=== PATIENT | female | born 1990 | race Caucasian/White ===

== ENCOUNTER 2019-10-18 14:54 | Inpatient (IN) ==
[2019-10-18] MEDS ORDERED: LACTATED RINGER'S 1,000 ML IV PRN (15:39)
[2019-10-18] MEDS ORDERED: OXYTOCIN 30 UNITS/500 ML BAG IV PRN ×2 (15:39→19:23)
[2019-10-18 16:23] LABS: Hematocrit (blood only) 34.4 % (37-47); Mean Corpuscular Hemoglobin 30.8 pg (25-34); Mean Corpuscular Hgb Conc 34.9 g/dL (32-36); Mean Corpuscular Volume 88.2 fL (80-100); Mean Platelet Volume 9.9 fL (7.4-10.4); Platelet Count 287 K/uL (130-400); RDW Coefficient of Variation 13.7 % (11.5-14.5); RDW Standard Deviation 44.4 fL (36.4-46.3); White Blood Count 19.01 K/uL (4.8-10.8)
[2019-10-18] MEDS ORDERED: ePHEDrine sulfate 50 MG/ML AMP ONE (17:53)
--- NOTE | 2019-10-18 17:53 | Labor Progress Brief Note ---
Date of Service October 18, 2019 Subjective Patient presents at 40 5/7 with painful contractions Q5min. Ambulated x2 hours. No LOF or VB. Contractions more intense. Assessment & Plan (1) : Labor progress evident. Patient would like epidural, will begin bolus and notify anesthesia now. BP noted, likely due to discomfort, no other s/sx PIH. Physical Exam Physical Exam: Cvx now /-1 SROM clear fluid occurred during exam, no hook used. FHT Cat 1 [place] Q7 Results & Data Vital Signs (Past 12 Hours) Vital Signs Temp Pulse Resp BP 10/18/19 17:03 94 H 141/88 H 10/18/19 15:49 95 H 142/83 H 10/18/19 15:13 101 H 144/91 H 10/18/19 15:08 97.9 F 102 H 20 133/81 10/18/19 15:00 97.9 F 102 H 20 133/81 Coding Level of Care Code None Diagnoses Z34.90
[2019-10-18] MEDS ORDERED: fentaNYL 2MCG/ML ROPIV 1.25MG/ML 100 ML BAG EPI ONE (17:54)
[2019-10-18] MEDS ORDERED: fentaNYL citrate 100 MCG/2 ML VIAL ONE (17:54)
[2019-10-18] MEDS ORDERED: BUPIVACAINE 0.25% 30 ML VIAL ONE (17:54)
[2019-10-18] MEDS ORDERED: NALBUPHINE HCL INJ 10 MG/ML AMP IV PRN (18:00)
[2019-10-18] MEDS ORDERED: DiphenhydrAMINE HCL 50 MG/ML VIAL IV PRN (18:00)
[2019-10-18] MEDS ORDERED: ePHEDrine sulfate 50 MG/ML AMP IV PRN (18:00)
[2019-10-18] MEDS ORDERED: NALOXONE HCL 0.4 MG/1 ML VIAL/CARP IV PRN (18:00)
[2019-10-18] MEDS ORDERED: NALOXONE HCL 1 MG in SODIUM CHLORIDE 0.9% 1000ML 1,000 ML IV PRN (18:00)
[2019-10-18] MEDS ORDERED: ONDANSETRON INJ 2 MG/ML 2 ML VIAL IV PRN (18:00)
[2019-10-18] MEDS ORDERED: fentaNYL 2MCG/ML ROPIV 1.25MG/ML 100 ML BAG EPI PRN (18:00)
--- NOTE | 2019-10-18 18:05 | Anesthesiology Consultation ---
Date of Service October 18, 2019 Assessment & Plan (1) Encounter for pre-operative examination: Chart Review Chart Review: Patient NOT seen in Pre Admission Testing and Acceptable Risk for Labor Epidural Per MFM, no contraindications to delivering at [facility]. Consults Requested none History Height/Weight Height: 5 ft 8 in Weight: 94.347 kg Allergies Allergy/AdvReac Type Severity Reaction Status Date / Time No Known Drug Allergies Allergy Verified 10/17/19 08:37 Medications Home Medications Medication Instructions Recorded Confirmed Last Taken prenat.vits,stella,utp-mikl-jaztw 1 tab PO DAILY 03/03/19 10/18/19 10/17/19 11:00 Past Medical History Medical History Breast lump Heart murmur stenosis of pulmonary valve Pulmonary stenosis Varicella Per [facility] assessement of this patient, she follows with cardiology for monitoring of her pulmonary artery stenosis. Echo report from 10/2018 documents mild supravalvar pulmonary stenosis and mild pulmonary insufficiency. Right ventricular systolic function and pulmonary artery pressure estimates were norm al. Left ventricular systolic function was excellent with an estimated LV EF of 70%. She has not required any treatments or interventions to date. Exercise / Class Metabolic Activity II 4-5 Yardwork/Stairs/Walk up hill Past Family History Family History Father Hypertension Past Surgical History Surgical History S/P fine needle aspiration Past Anesthesia History No Hx of Anesthesia Complications and No Family Hx of Anesthesia Complications History of PONV No Hx of PONV and No Hx of Motion Sickness Social History Smoking Status: Never smoker Do You Dip or Chew Tobacco: No Hx Alcohol Use: No Hx Substance Use: No Physical Exam Vital Signs Last Vital Signs Temp 36.6 C 10/18/19 15:08 Pulse 94 H 10/18/19 18:03 Resp 20 10/18/19 15:08 BP 134/83 10/18/19 18:03 Pulse Ox 100 10/18/19 18:02 Testing Laboratory Results 10/18/19 15:56
--- NOTE | 2019-10-18 19:24 | Labor Progress Brief Note ---
Date of Service October 18, 2019 Subjective Comfortable with epidural. Assessment & Plan (1) : Change occurring. Ctx spread apart so discussed pitocin with pt and she is agreeable to starting. Physical Exam Physical Exam: [place] Q4-5 FHT Cat 1 Results & Data Vital Signs (Past 12 Hours) Vital Signs Temp Pulse Resp BP Pulse Ox 10/18/19 19:22 85 100 10/18/19 19:17 86 99 10/18/19 19:12 88 99 10/18/19 19:08 98.6 F 18 10/18/19 19:07 86 97 10/18/19 19:02 90 98 10/18/19 18:58 83 126/76 10/18/19 18:57 86 96 10/18/19 18:55 83 118/73 10/18/19 18:52 90 100 10/18/19 18:49 88 131/77 10/18/19 18:47 85 100 10/18/19 18:43 83 125/83 10/18/19 18:42 87 100 10/18/19 18:41 94 H 133/84 10/18/19 18:39 96 H 127/81 10/18/19 18:37 91 H 137/80 100 10/18/19 18:35 98 H 135/80 10/18/19 18:33 90 127/81 10/18/19 18:32 97 H 100 10/18/19 18:31 100 H 136/85 10/18/19 18:30 89 134/81 10/18/19 18:28 94 H 141/86 H 10/18/19 18:27 97 H 100 10/18/19 18:22 106 H 100 10/18/19 18:17 97 H 100 10/18/19 18:12 96 H 100 10/18/19 18:07 103 H 100 10/18/19 18:03 94 H 134/83 10/18/19 18:02 105 H 100 10/18/19 17:03 94 H 141/88 H 10/18/19 15:49 95 H 142/83 H 10/18/19 15:13 101 H 144/91 H 10/18/19 15:08 97.9 F 102 H 20 133/81 10/18/19 15:00 97.9 F 102 H 20 133/81 Coding Level of Care Code None Diagnoses Z34.90
--- NOTE | 2019-10-18 21:27 | Labor Progress Brief Note ---
Date of Service October 18, 2019 Subjective Feeling some pressure Assessment & Plan (1) : Begin second stage Physical Exam Physical Exam: 100/+2 FHT Cat 1 Results & Data Vital Signs (Past 12 Hours) Vital Signs Temp Pulse Resp BP Pulse Ox 10/18/19 21:22 108 H 100 10/18/19 21:19 84 125/64 10/18/19 21:17 82 99 10/18/19 21:12 83 99 10/18/19 21:07 95 H 99 10/18/19 21:02 84 117/67 99 10/18/19 20:59 98.6 F 20 10/18/19 20:57 86 98 10/18/19 20:52 83 99 10/18/19 20:47 84 116/68 98 10/18/19 20:42 87 99 10/18/19 20:37 99 H 100 10/18/19 20:33 80 126/74 10/18/19 20:32 83 100 10/18/19 20:30 18 10/18/19 20:27 91 H 99 10/18/19 20:22 84 100 10/18/19 20:18 81 127/75 10/18/19 20:17 82 100 10/18/19 20:12 88 99 10/18/19 20:07 81 99 10/18/19 20:03 77 122/72 10/18/19 20:02 83 99 10/18/19 20:00 20 10/18/19 19:57 84 99 10/18/19 19:52 82 100 10/18/19 19:47 85 122/76 100 10/18/19 19:42 83 100 10/18/19 19:37 81 99 10/18/19 19:34 83 122/74 10/18/19 19:32 84 100 10/18/19 19:30 16 10/18/19 19:27 83 100 10/18/19 19:22 85 100 10/18/19 19:17 86 99 10/18/19 19:12 88 99 10/18/19 19:08 98.6 F 18 10/18/19 19:07 86 97 10/18/19 19:02 90 98 10/18/19 18:58 83 126/76 10/18/19 18:57 86 96 10/18/19 18:55 83 118/73 10/18/19 18:52 90 100 10/18/19 18:49 88 131/77 10/18/19 18:47 85 100 10/18/19 18:43 83 125/83 10/18/19 18:42 87 100 10/18/19 18:41 94 H 133/84 10/18/19 18:39 96 H 127/81 10/18/19 18:37 91 H 137/80 100 10/18/19 18:35 98 H 135/80 10/18/19 18:33 90 127/81 10/18/19 18:32 97 H 100 10/18/19 18:31 100 H 136/85 10/18/19 18:30 89 134/81 10/18/19 18:28 94 H 141/86 H 10/18/19 18:27 97 H 100 10/18/19 18:22 106 H 100 10/18/19 18:17 97 H 100 10/18/19 18:12 96 H 100 10/18/19 18:07 103 H 100 10/18/19 18:03 94 H 134/83 10/18/19 18:02 105 H 100 10/18/19 17:03 94 H 141/88 H 10/18/19 15:49 95 H 142/83 H 10/18/19 15:13 101 H 144/91 H 10/18/19 15:08 97.9 F 102 H 20 133/81 10/18/19 15:00 97.9 F 102 H 20 133/81 Coding Level of Care Code None Diagnoses Z34.90
--- NOTE | 2019-10-18 21:47 | Delivery Summary ---
Vaginal Delivery Summary Date of Service October 18, 2019 Vaginal Delivery Summary DIAGNOSES: 1. Quinn intrauterine at 40w5d gestation. 2. Spontaneous onset of labor. 3. Group B Streptococcus Neg. PROCEDURE: Spontaneous vaginal delivery without laceration. SURGEON: Rachele Parmar MD. [employer]: None. ESTIMATED BLOOD LOSS: 250 mL. COMPLICATIONS: None. PLACENTA: Spontaneous and intact with a 3-vessel cord. DISPOSITION: Stable to labor and delivery. DESCRIPTION: The patient pushed well and brought the head to in OA position. The infant's head was allowed to deliver with contraction force and no further active pushing, with the perineum protected during this time. The shoulders delivered easily with a maternal pushing effort. There was a double nuchal cord reduced with the head on the perineum. The left shoulder was anterior. The shoulders and body delivered without any difficulty, and the was placed on the maternal abdomen. It was vigorous and moving all extremities, and making respiratory efforts. The cord was doubly clamped by the MD and then cut by the FOB. The placenta delivered spontaneously and was noted to be intact and with a 3VC. The cervix, vagina and perineum were examined and were found to be without defect requiring repair. The fundus was firm and lochia minimal immediately after delivery.
[2019-10-18] MEDS ORDERED: DIPHTHERIA/TETANUS/PERTUSSIS 0.5 ML SYR/VIAL IM ONE (21:57)
[2019-10-18] MEDS ORDERED: BENZOCAINE 20% AER SPR 82.5 GM CAN EXT PRN (21:57)
[2019-10-18] MEDS ORDERED: SUPERCREAM 0.870% 15 GM JAR EXT PRN (21:57)
[2019-10-18] MEDS ORDERED: OXYCODONE/ACETAMINOPHEN 5mg/325mg TAB PO PRN (21:57)
[2019-10-18] MEDS ORDERED: HYDROCORTISONE ACETATE 25 MG SUPP PR PRN (21:57)
[2019-10-18] MEDS ORDERED: ACETAMINOPHEN 325 MG TAB PO PRN (21:57)
[2019-10-18] MEDS: IBUPROFEN 600 MG TAB PO PRN (23:48)
[2019-10-19] MEDS: IBUPROFEN 600 MG TAB PO PRN ×3 (06:06→20:20)
--- NOTE | 2019-10-19 06:25 | Obstetrical Progress Note ---
Date of Service October 19, 2019 Assessment & Plan (1) state: Recovering well PPD#1, routine care today, D/C tomorrow. Subjective Ambulation: ambulating normally Voiding: no voiding problems Passing Gas:: Yes Diet Tolerance:: regular diet Lochia:: Small Feeding Type:: breast feeding Physical Exam Constitutional WD/WN, vitals as above Eyes PERRL, conjunctivae normal, anicteric sclerae Neck normal visual inspection Respiratory normal respiratory effort and able to speak in complete sentences; no respiratory distress and no labored breathing Cardiovascular Rate/Rhythm: regular rate and regular rhythm Extremities: no edema Chest (Breasts) Chest: normal inspection of chest Gastrointestinal (Abdomen) Inspection/Auscultation: abdomen normal to inspection Soft, postgravid Psychiatric A+Ox3, euthymic affect Genitourinary OB Exam Abdomen: + fundal height Fundus: + firm and + relation to umbilicus (fundus just below umbilicus); not tender Results & Data Vital Signs (Past 12 Hours) Vital Signs Temp Pulse Pulse Resp BP BP Pulse Ox 10/19/19 05:00 97.9 F 90 18 121/75 10/19/19 00:25 98.2 F 108 H 18 129/78 10/18/19 23:43 87 143/86 H 10/18/19 23:28 95 H 153/74 H 10/18/19 23:22 96 H 18 151/81 H 10/18/19 23:13 96 H 151/81 H 10/18/19 22:58 97 H 162/83 H 10/18/19 22:43 97 H 18 126/81 10/18/19 22:28 95 H 18 135/73 10/18/19 22:13 103 H 16 132/105 H 10/18/19 21:58 108 H 18 144/113 H 10/18/19 21:43 114 H 144/88 H 10/18/19 21:42 114 H 18 144/88 H 97 10/18/19 21:37 122 H 99 10/18/19 21:33 117 H 155/94 H 10/18/19 21:32 116 H 100 10/18/19 21:27 105 H 20 100 10/18/19 21:22 108 H 100 10/18/19 21:19 84 125/64 10/18/19 21:17 82 99 04/25/20 21:12 83 99 04/25/20 21:07 95 H 99 0425/20 21:02 84 117/67 99 04/25/20 20:59 98.6 F 20 10/17/20 20:57 86 98 0425/20 20:52 83 99 25/20 20:47 84 116/68 98 0425/20 20:42 87 99 10/17/20 20:37 99 H 100 0425/20 20:33 80 126/74 0425/20 20:32 83 100 0425/20 20:30 18 04/20 20:27 91 H 99 10/17/20 20:22 84 100 04/20 20:18 81 127/75 0425/20 20:17 82 100 25/20 20:12 88 99 25/20 20:07 81 99 10/17/20 20:03 77 122/72 0425/20 20:02 83 99 04/20 20:00 20 20 19:57 84 99 10/17/20 19:52 82 100 0425/20 19:47 85 122/76 100 0425/20 19:42 83 100 10/17/20 19:37 81 99 04/20 19:34 83 122/74 0425/20 19:32 84 100 10/17/20 19:30 16 10/17/20 19:27 83 100 10/17/20 19:22 85 100 10/17/20 19:17 86 99 10/17/20 19:12 88 99 25/20 19:08 98.6 F 18 20 19:07 86 97 0425/20 19:02 90 98 25/20 18:58 83 126/76 0425/20 18:57 86 96 0425/20 18:55 83 118/73 0425/20 18:52 90 100 0425/20 18:49 88 131/77 0425/20 18:47 85 100 0425/20 18:43 83 125/83 0425/20 18:42 87 100 0425/20 18:41 94 H 133/84 0425/20 18:39 96 H 127/81 04/25/20 18:37 91 H 137/80 100 10/18/19 18:35 98 H 135/80 10/18/19 18:33 90 127/81 10/18/19 18:32 97 H 100 10/18/19 18:31 100 H 136/85 10/18/19 18:30 89 134/81 10/18/19 18:28 94 H 141/86 H 10/18/19 18:27 97 H 100
[2019-10-19 07:03] LABS: Hematocrit (blood only) 30.5 % (37-47); Hemoglobin 10.2 g/dL (12.0-16.0); Mean Corpuscular Hemoglobin 29.6 pg (25-34); Mean Corpuscular Hgb Conc 33.4 g/dL (32-36); Mean Corpuscular Volume 88.4 fL (80-100); Mean Platelet Volume 9.7 fL (7.4-10.4); Platelet Count 249 K/uL (130-400); RDW Coefficient of Variation 13.7 % (11.5-14.5); RDW Standard Deviation 44.3 fL (36.4-46.3); Red Blood Count 3.45 M/uL (4.2-5.4); White Blood Count 16.82 K/uL (4.8-10.8)
--- NOTE | 2019-10-19 07:30 | Anesthesia Procedure Note ---
Date of Service October 19, 2019 Anesthesia Post Epidural Note Vital Signs Vital Signs: Temp Pulse Resp BP Pulse Ox 36.6 C 90 18 121/75 97 10/19/19 05:00 10/19/19 05:00 10/19/19 05:00 10/19/19 05:00 10/18/19 21:42 Notes Mental Status: alert / awake / arousable and participated in evaluation Patient Amnestic to Procedure: No Nausea / Vomiting: adequately controlled Pain: adequately controlled Airway Patency, RR, SpO2: stable & adequate BP & HR: stable & adequate Hydration State: stable & adequate Neuraxial Anesthesia: was administered and sensory block resolved Anesthetic Complications: no major complications apparent and Pt Satisfied with anesthetic care Epidural: Removed without complications and With tip intact
[2019-10-19] MEDS: DOCUSATE SODIUM 100 MG CAP PO SCH ×2 (08:40→20:20)
[2019-10-19] MEDS: PRENATAL VITAMIN 1 TAB PO SCH (08:40)
[2019-10-20] MEDS: IBUPROFEN 600 MG TAB PO PRN ×2 (02:14→16:07)
--- NOTE | 2019-10-20 07:05 | Obstetrical Progress Note ---
Date of Service October 20, 2019 Assessment & Plan (1) state: Recovered well, instructions for DC reviewed. Subjective Ambulation: ambulating normally Voiding: no voiding problems Passing Gas:: Yes Diet Tolerance:: regular diet Lochia:: Small Feeding Type:: breast feeding Physical Exam Constitutional WD/WN, vitals as above Eyes PERRL, conjunctivae normal, anicteric sclerae Neck normal visual inspection Respiratory normal respiratory effort and able to speak in complete sentences; no respiratory distress and no labored breathing Cardiovascular Rate/Rhythm: regular rate and regular rhythm Extremities: no edema Chest (Breasts) Chest: normal inspection of chest Gastrointestinal (Abdomen) Inspection/Auscultation: abdomen normal to inspection Soft, postgravid Psychiatric A+Ox3, euthymic affect Genitourinary OB Exam Abdomen: + fundal height Fundus: + firm and + relation to umbilicus (fundus just below umbilicus); not tender Results & Data Vital Signs (Past 12 Hours) Vital Signs Temp Pulse Resp BP Pulse Ox 10/19/19 23:30 98.6 F 90 18 135/86 10/19/19 20:30 98.1 F 89 18 128/88 97
[2019-10-20] MEDS: PRENATAL VITAMIN 1 TAB PO SCH (09:55)
[2019-10-20] MEDS: DOCUSATE SODIUM 100 MG CAP PO SCH (09:55)
[2019-10-20 16:27] VITALS: O2SAT 97
[2019-10-20 20:31] VITALS: BP 134/85; PULSE 92; TEMP 98.6
== END 2019-10-20 20:30 | disposition home or self-care (01) | DRG 807 ==
LOC: OPB 14:54 → 4S1 14:56 → 4S2 10-19 00:29

== ENCOUNTER 2022-03-24 20:14 | Inpatient (IN) ==
[2022-03-24] MEDS ORDERED: OXYTOCIN 30 UNITS/500 ML BAG IV PRN (21:03)
[2022-03-24] MEDS ORDERED: LIDOCAINE 1% LOCAL 20 ML VIAL INFIL PRN (21:03)
--- NOTE | 2022-03-24 21:10 | History & Physical Report ---
Date of Service March 24, 2022 Assessment & Plan (1) Encounter for supervision of normal in multigravida, antepartum: Plan: Admit to L&D, EFM/toco. Labs, IV. Discussed with patient that her contraction pattern is not yet ideal, however she is making cervical change. I offered pitocin to augment labor vs ambulate in hallways - she would prefer to ambulate. She does plan to get an epidural when pain increases. History of Present Illness Chief Complaint: contractions Primary Care Provider: Lida MilviaHomero Aguayo 31yo @ 40 08/01, presents with contractions every 4 minutes. + movement, no leaking fluid or vaginal bleeding. Pt with Pulmonary Stenosis echo (11/22/21 @ [facility] [place]--> WNL Follows with cardiology at [facility] [place] MFM consult (12/15/21 @ [facility] [place] Gestational Diabetes Monthly AC u/s Allergies Allergy/AdvReac Type Severity Reaction Status Date / Time No Known Drug Allergies Allergy Verified 03/24/22 15:31 Home Medications Medication Instructions Recorded Confirmed Type fish,bora,flax oils-om3,6,9no1 1 cap PO DAILY 08/17/21 03/24/22 History [[place] 3-6-9] prenat.vits,stella,rli-mhsk-rmvbs 1 tab PO DAILY 08/17/21 03/24/22 History acetone (urine) test (Ketone Urine #50 ea 01/30/22 03/24/22 Rx Test strips) blood-glucose meter (OneTouch #1 ea 01/30/22 03/24/22 Rx Verio Reflect Meter) lancets 33 gauge (OneTouch Delica #150 ea 01/30/22 03/24/22 Rx Lancets) cholecalciferol (vitamin D3) 1 cap PO DAILY 02/03/22 03/24/22 History breast pump #1 ea 02/21/22 03/24/22 Rx blood sugar diagnostic (OneTouch #150 ea 03/24/22 03/24/22 Rx Verio test strips) Patient History Medical History Breast lump Heart murmur stenosis of pulmonary valve Pulmonary stenosis Varicella Surgical History S/P fine needle aspiration Family History Father Hypertension Social History Smoking Status: Never smoker Hx Alcohol Use: No Hx Substance Use: No Preferred Language: Barbadian Communication Ability: Effective [employer] Operator Required: No Beliefs That Will Affect Care: None marital status: marital status details: Louis Steinberg (31) [phone] Current Living Situation: Spouse Current Living Situation Comment: lives with spouse, son, dogs, current occupational status: employed 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 No s/s chorio or abruption. Skin: no rashes, warm and dry Psychiatric: A+Ox3, euthymic affect Results & Data ([facility]) Vital Signs (Past 12 Hours) Vital Signs Pulse BP 03/24/22 20:34 110 H 114/79 Monitoring External Monitor FHT Cat 1 [place] Q 4-5 min Coding Level of Care Code None Diagnoses Encounter for supervision of normal in multigravida, antepartum Z34.80
[2022-03-24] MEDS: LACTATED RINGER'S 1,000 ML IV PRN ×2 (21:15→23:03)
[2022-03-24 21:41] LABS: Hemoglobin 11.1 g/dl (12.0-16.0); Mean Corpuscular Hemoglobin 26.7 pg (25.0-34.0); Mean Corpuscular Hgb Conc 33.6 g/dL (32.0-36.0); Mean Corpuscular Volume 79.3 fL (80.0-100.0); Mean Platelet Volume 9.7 fL (9.4-12.3); Platelet Count 255 K/uL (130-400); RDW Coefficient of Variation 13.4 % (11.5-14.5); RDW Standard Deviation 38.5 fL (36.4-46.3); Red Blood Count 4.16 M/uL (3.93-5.22); White Blood Count 12.82 K/ul (4.8-10.8)
[2022-03-24] MEDS ORDERED: BUPIVACAINE 0.25% 30 ML VIAL ONE (21:54)
[2022-03-24] MEDS ORDERED: LIDOCAINE 2%/EPINEPHRINE 1:200,000 20 ML SDV ONE (21:54)
[2022-03-24] MEDS ORDERED: SODIUM CHLORIDE 0.9% INJ 10 ML VIAL ONE (21:54)
[2022-03-24] MEDS ORDERED: fentaNYL citrate 100 MCG/2 ML VIAL ONE (21:54)
[2022-03-24] MEDS ORDERED: ePHEDrine sulfate 50 MG/ML AMP ONE (21:54)
[2022-03-24] MEDS ORDERED: fentaNYL 2MCG/ML ROPIVACAINE 1.25MG/ML 100 ML BAG EPI ONE (21:55)
[2022-03-24] MEDS ORDERED: NALBUPHINE HCL INJ 10 MG/ML AMP IV PRN (22:31)
[2022-03-24] MEDS ORDERED: NALOXONE HCL 0.4 MG/1 ML VIAL/CARP IV PRN (22:31)
[2022-03-24] MEDS ORDERED: ONDANSETRON INJ 2 MG/ML 2 ML VIAL IV PRN (22:31)
[2022-03-24] MEDS ORDERED: fentaNYL 2MCG/ML ROPIVACAINE 1.25MG/ML 100 ML BAG EPI PRN (22:31)
[2022-03-24] MEDS ORDERED: diphenhydrAMINE 50 MG/ML VIAL IV PRN (22:31)
[2022-03-24] MEDS ORDERED: ePHEDrine sulfate 50 MG/ML AMP IV PRN (22:31)
[2022-03-24] MEDS ORDERED: NALOXONE HCL 1 MG in SODIUM CHLORIDE 0.9% 1000ML 1,000 ML IV PRN (22:31)
--- NOTE | 2022-03-24 22:34 | Anesthesiology Consultation ---
Date of Service March 24, 2022 Assessment & Plan Chart Review Chart Review: Patient NOT seen in Pre Admission Testing and Acceptable Risk for Labor Epidural Consults Requested none ASA ASA2 Proposed Anesthesia Anesthesia Type: Labor Epidural and CSE Risk / Benefits Reviewed With: PT / POA / Parent / Guardian, Accepts Plan and Informed Consent Obtained History Height/Weight Height: 5 ft 8 in Weight: 91.444 kg Allergies Allergy/AdvReac Type Severity Reaction Status Date / Time No Known Drug Allergies Allergy Verified 03/24/22 15:31 Medications Home Medications Medication Instructions Recorded Confirmed Last Taken fish,bora,flax oils-om3,6,9no1 1 cap PO DAILY 08/17/21 03/24/22 03/24/22 07:30 [[place] 3-6-9] prenat.vits,stella,iig-kbuu-rvhtx 1 tab PO DAILY 08/17/21 03/24/22 03/24/22 07:30 acetone (urine) test (Ketone Urine #50 ea 01/30/22 03/24/22 Unknown Test strips) blood-glucose meter (OneTouch #1 ea 01/30/22 03/24/22 Unknown Verio Reflect Meter) lancets 33 gauge (OneTouch Delica #150 ea 01/30/22 03/24/22 Unknown Lancets) cholecalciferol (vitamin D3) 1 cap PO DAILY 02/03/22 03/24/22 03/24/22 07:30 breast pump #1 ea 02/21/22 03/24/22 Unknown blood sugar diagnostic (OneTouch #150 ea 03/24/22 03/24/22 Unknown Verio test strips) NPO Date Last Intake of Fluids: 03/24/22 Time Last Intake of Fluids: 22:00 Date Last Intake of Solids: 03/24/22 Time Last Intake of Solids: 17:30 Past Medical History Medical History Breast lump Heart murmur stenosis of pulmonary valve Pulmonary stenosis Varicella Exercise / Class Metabolic Activity II 4-5 Yardwork/Stairs/Walk up hill Past Family History Family History Father Hypertension Past Surgical History Surgical History S/P fine needle aspiration Past Anesthesia History No Hx of Anesthesia Complications and No Family Hx of Anesthesia Complications History of PONV No Hx of PONV and No Hx of Motion Sickness Social History Smoking Status: Never smoker Hx Alcohol Use: No Hx Substance Use: No Review of Systems no chest pain or sob Physical Exam Vital Signs Last Vital Signs Pulse 99 H 03/24/22 22:30 Resp 18 03/24/22 20:41 BP 114/79 03/24/22 20:34 Pulse Ox 97 03/24/22 22:30 ENMT Mouth: no TMJ abnormality Thyromental Distance: > or= 3.5 Finger Breadths Mallampati Class: II Neck normal visual inspection Respiratory normal respiratory effort Auscultation: lungs clear to auscultation bilaterally Cardiovascular Rate/Rhythm: regular rate and regular rhythm Musculoskeletal Spine: normal cervical ROM Neurologic moves all extremities Psychiatric Orientation: alert and oriented x 3 Testing Laboratory Results 03/24/22 21:24 03/24/22 21:23 POC Glucose 112 H
[2022-03-25] MEDS: OXYTOCIN 30 UNITS/500 ML BAG IV PRN ×2 (00:33→01:32)
--- NOTE | 2022-03-25 00:45 | Delivery Summary ---
Vaginal Delivery Summary Date of Service March 25, 2022 Vaginal Delivery Summary Vaginal Delivery Summary: Pre-delivery diagnoses: 31yo @ 40 3/7, labor, GDMA1, maternal pulmonary stenosis Post-delivery diagnoses: same Procedure: spontaneous vaginal delivery Surgeon: Danay Oorzco DO Complications: none Findings: Viable female . Apgars: 10/10. Weight pending, please see nursery records Estimated blood loss: 300ml Description of delivery: The patient progressed to complete with epidural anesthesia. She then began to push. She spontaneously vaginally delivered a viable from the cephalic presentation. The head delivered in COOPER position. Nuchal x 2, reduced. The anterior shoulder delivered, followed by the posterior shoulder, followed by the body. The baby was placed on mother's abdomen and a spontaneous cry was heard. Delayed cord clamping was employed, and the cord was doubly clamped and cut. Cord blood was obtained. The placenta was delivered spontaneously intact with a 3-vessel cord. The uterus and vagina were swept of clots and debris. IV pitocin was given. The uterus became firm. The cervix, vagina, and perineum were inspected and no lacerations were noted. Excellent hemostasis was observed. The mother and baby are recovering in stable and good condition in the room. Sponge and instrument counts were correct x 2. Danay Orozco DO [facility] Vaginal Delivery Charge Vaginal Delivery Codes: 12717 global code for the antepartum, delivery, and post- Delivery Type Details: [facility]
[2022-03-25] MEDS ORDERED: DIPHTHERIA/TETANUS/PERTUSSIS 0.5 ML SYR/VIAL IM ONE (00:53)
[2022-03-25] MEDS ORDERED: BENZOCAINE 20% AER SPR 82.5 GM CAN EXT PRN (00:53)
[2022-03-25] MEDS ORDERED: ACETAMINOPHEN 325 MG TAB PO PRN (00:53)
[2022-03-25] MEDS ORDERED: HYDROCORTISONE ACETATE 25 MG SUPP PR PRN (00:53)
[2022-03-25] MEDS ORDERED: oxyCODONE/ACETAMINOPHEN 5mg/325mg TAB PO PRN (00:53)
[2022-03-25] MEDS ORDERED: bisacodyL 10 MG SUPP PR PRN (00:53)
[2022-03-25 06:47] LABS: Hematocrit (blood only) 31.3 % (34.1-44.9); Hemoglobin 10.2 g/dl (12.0-16.0)
[2022-03-25] MEDS: PRENATAL VITAMIN 1 TAB PO SCH (08:44)
[2022-03-25] MEDS: IBUPROFEN 600 MG TAB PO PRN ×3 (08:44→23:46)
[2022-03-25] MEDS: DOCUSATE SODIUM 100 MG CAP PO SCH ×2 (08:44→19:39)
--- NOTE | 2022-03-25 09:45 | Anesthesia Procedure Note ---
Date of Service March 25, 2022 Anesthesia Post Epidural Note Vital Signs Vital Signs: Temp Pulse Resp BP Pulse Ox O2 Del Method 36.9 C 83 18 121/80 100 03/25/22 08:45 03/25/22 08:45 03/25/22 08:45 03/25/22 08:45 03/25/22 03:40 03/25/22 08:45 Pain Intensity Lower Abdomen: Pain Intensity: 3 Notes Mental Status: alert / awake / arousable Nausea / Vomiting: adequately controlled Pain: adequately controlled Airway Patency, RR, SpO2: stable & adequate BP & HR: stable & adequate Hydration State: stable & adequate Neuraxial Anesthesia: was administered and sensory block is resolving Anesthetic Complications: no major complications apparent Epidural: Removed without complications and With tip intact
[2022-03-26] MEDS: IBUPROFEN 600 MG TAB PO PRN (06:18)
--- NOTE | 2022-03-26 08:10 | Obstetrical Progress Note ---
Date of Service March 26, 2022 Assessment & Plan (1) Encounter for care and examination after delivery: 31-year-old day 1 status post vaginal delivery. Doing well. Stable for discharge. Subjective Ambulation: ambulating normally Voiding: no voiding problems Passing Gas:: Yes Diet Tolerance:: regular diet Lochia:: Moderate Feeding Type:: breast feeding Physical Exam Constitutional WD/WN, vitals as above Respiratory normal respiratory effort; no respiratory distress and no labored breathing Gastrointestinal (Abdomen) Inspection/Auscultation: abdomen normal to inspection; abdomen not distended Percussion/Palpation: abdomen soft; abdomen nontender, no guarding and abdomen not rigid Genitourinary OB Exam Abdomen: + fundal height Fundus: + firm and + relation to umbilicus (Below); not tender or not boggy Results & Data ([facility]) Vital Signs (Past 12 Hours) Vital Signs Temp Pulse Resp BP O2 Del Method 03/26/22 04:10 36.8 C 86 16 118/79 Room Air 03/25/22 23:45 36.9 C 84 18 127/87 Room Air
[2022-03-26] MEDS: PRENATAL VITAMIN 1 TAB PO SCH (08:25)
[2022-03-26] MEDS: DOCUSATE SODIUM 100 MG CAP PO SCH (08:25)
[2022-03-26] MEDS ORDERED: bisacodyL 5 MG TABEC PO SCH (20:00)
== END 2022-03-26 14:18 | disposition home or self-care (01) | DRG 807 ==
LOC: OPB 20:14 → 4S1 20:17 → 4E2 03-25 03:39

== ENCOUNTER 2024-10-21 07:57 | Inpatient (IN) ==
[2024-10-21] MEDS ORDERED: LIDOCAINE 1% LOCAL 20 ML VIAL INFIL PRN (08:32)
[2024-10-21] MEDS ORDERED: ACETAMINOPHEN 500 MG TAB PO PRN (08:32)
[2024-10-21] MEDS ORDERED: OXYTOCIN 30 UNITS/NSS 30 UNITS/500 ML BAG IV PRN ×2 (08:32→17:58)
[2024-10-21] MEDS ORDERED: CALCIUM CARBONATE 500 MG CHEWABLE TAB PO PRN (08:32)
[2024-10-21] MEDS: LACTATED RINGER'S 1,000 ML IV PRN (08:58)
[2024-10-21] MEDS: PENICILLIN GK 6 MU in DEXTROSE 5% 250 ML IV STA (09:06)
--- NOTE | 2024-10-21 09:11 | History & Physical Report ---
Date of Service October 21, 2024 Assessment & Plan (1) Group B streptococcal infection during : Plan: Kelly is a 34-year-old currently at 41 weeks 4 days gestational age presents for induction of labor 1. Fetus: Category 1 tracing 2. Labor: Will start with oxytocin per regular protocol. Will plan for rupture of membranes once complete on penicillin. 3. GBS positive penicillin per protocol 4. Vitals within normal limits (2) Encounter for supervision of normal , unspecified, unspecified trimester: (3) Gestational diabetes: (4) Encounter for induction of labor: Admission and Anticipated Discharge Date Admission Date: October 21, 2024 History of Present Illness Primary Care Provider: Lida Aguayo Kelly is a 34-year-old G3, P2 currently at 41 weeks 4 days gestational age presents for induction of labor. plans: GDM w/prior *Begin monthly Growth US's @24wks Patient with Pulmonary Stenosis has seen cards [place] 22 weeks [place] [facility] [place] WNL GBS Positive *Treat in Labor OB Labs: Blood Type O Positive 03/10/24 Antibody Screen NEGATIVE 03/10/24 Hgb 11.8 g/dl (12.0-16.0) L 07/18/24 Hct 35.0 % (37.0-47.0) L 07/18/24 MCV 86.2 fL (80.0-100.0) 03/10/24 Plt Count 356 K/uL (130-400) 03/10/24 VZV IgG Antibody 823.20 INDEX 10/16/18 Rubella IgG Antibody Immune (Immune) 03/10/24 RPR Nonreactive (Nonreactive) 08/22/21 Treponema pallidum Ab Negative (Negative) 07/18/24 Hep Bs Antigen Negative (Negative) 03/10/24 Hepatitis C Antibody Negative (Negative) 03/10/24 HIV 1&2 Ab/P24 Ag 4thGn Negative (Negative) 03/10/24 Glucose 1 Hr 50 gm 133 mg/dl (70-130) H 10/07/21 Maternal Serum AFP 32.7 ng/mL 10/07/21 OB Optional Labs: Chlamydia trachomatis RNA Not Detected (NotDetected) 03/10/24 Neisseria gonorrhoeae RNA Not Detected (NotDetected) 03/10/24 Thyroid Stimulating Hormone (TSH) 2.170 uIu/ml (0.300-4.500) 06/11/18 Alpha Fetoprotein Triple Screen SEE NOTE 10/07/21 Labs Reviewed: low risk panorama cf/sma neg 2019 gbs neg afp neg Allergies Allergy/AdvReac Type Severity Reaction Status Date / Time No Known Drug Allergies Allergy Verified 10/20/24 14:48 Home Medications Medication Instructions Recorded Confirmed Type choline [Choline-10] PO 03/05/24 10/20/24 History 21-iron fu-folic acid PO 03/05/24 10/20/24 History [ Complete] acetone (urine) test (Ketone Urine #50 ea 04/10/24 10/20/24 Rx Test strips) blood sugar diagnostic (OneTouch #150 ea 04/10/24 10/20/24 Rx Verio test strips) lancets 33 gauge (OneTouch Delica #150 ea 07/03/24 10/20/24 Rx Plus Lancet) hydrocortisone 2.5 % topical cream 1 applic topical BID #30 grams 07/28/24 10/20/24 Rx valacyclovir 1 gram tablet 2,000 mg (2 x 1 gram) PO Q12H PRN 07/28/24 10/20/24 Rx cold sores 1 day #8 tabs Patient History Medical History (Updated 10/21/24 @ 09:09 by David Starr MD) Lump of right breast Fibroadenoma of breast Breast lump Heart murmur stenosis of pulmonary valve Varicella Surgical History S/P fine needle aspiration Family History Father Hypertension Denies family history of Ovarian cancer Prostate cancer Breast cancer Colorectal cancer Social History Smoking Status: Never smoker Second Hand Exposure: No; Do You Dip or Chew Tobacco: No; Tobacco Cessation Education Requested by Patient: No Hx Alcohol Use: No Hx Substance Use: No Preferred Language: Japanese Communication Ability: Effective Regional Program Manager Required: No Beliefs That Will Affect Care: None marital status: marital status details: Louis Steinberg (34) [phone] Current Living Situation: Spouse Current Living Situation Comment: Mikael- , 2 children current occupational status: employed 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 Other Information That Helps Us Care for You: No Feels Safe at Home: Yes Safety Concerns: Feels Safe At This Time Assistive Devices: None Physical Exam Genitourinary: Manual OB Exam: + cervical dilation 4 cm, + cervical effacement 80% and + station -2 OB Exam Monitor Tracing: + external FHT monitor used, + external uterine monitor used, + category I and + normal FHT variability Results & Data Vital Signs (Past 12 Hours) Vital Signs Temp Pulse Resp BP 10/21/24 08:20 97 H 137/77 10/21/24 08:14 36.9 C 97 H 18 137/77 Coding Level of Care Code None Diagnoses Group B streptococcal infection during O98.819; B95.1 Supervision of other normal , antepartum Z34.80 Normal : other normal Diet controlled gestational diabetes mellitus (GDM) in third trimester O24.410 Gestational diabetes mellitus control: diet-controlled Trimester: third trimester Encounter for induction of labor Z34.90 (2) Encounter for supervision of normal , unspecified, unspecified trimester Normal : other normal Qualified Code(s): Z34.80 - Encounter for supervision of other normal , unspecified trimester (3) Gestational diabetes Gestational diabetes mellitus control: diet-controlled Trimester: third trimester Qualified Code(s): O24.410 - Gestational diabetes mellitus in pregnan cy, diet controlled
[2024-10-21] MEDS: OXYTOCIN 30 UNITS/NSS 30 UNITS/500 ML BAG IV PRN (09:12)
[2024-10-21 09:19] LABS: Hemoglobin 11.4 g/dl (12.0-16.0); Mean Corpuscular Hemoglobin 28.9 pg (25.0-34.0); Mean Corpuscular Hgb Conc 34.5 g/dL (32.0-36.0); Mean Corpuscular Volume 83.5 fL (80.0-100.0); Platelet Count 258 K/uL (130-400); RDW Coefficient of Variation 14.3 % (11.5-14.5); RDW Standard Deviation 43.5 fL (36.4-46.3); Red Blood Count 3.95 M/uL (4.20-5.40); White Blood Count 10.92 K/ul (4.8-10.8)
[2024-10-21] MEDS: PENICILLIN GK 3 MU in DEXTROSE 5% 100 ML IV PRN (12:26)
[2024-10-21] MEDS: fentANYL 2 MCG/ML BUPIVacaine 0.125%-NSS 100ML BAG ONE (14:33)
[2024-10-21] MEDS: SODIUM CHLORIDE 0.9% PF INJ 10 ML VIAL ONE (14:34)
[2024-10-21] MEDS: LIDOCAINE 2%/EPINEPHRINE 1:200,000 20 ML PF ONE (14:34)
[2024-10-21] MEDS: BUPIVACAINE 0.25% PF 30 ML VIAL ONE (14:34)
[2024-10-21] MEDS ORDERED: NALOXONE HCL 1 MG in SODIUM CHLORIDE 0.9% 1,000 ML IV PRN (14:40)
[2024-10-21] MEDS ORDERED: SODIUM CHLORIDE 0.9% PF INJ 10 ML VIAL EPI PRN (14:40)
[2024-10-21] MEDS ORDERED: fentANYL 2 MCG/ML BUPIVacaine 0.125%-NSS 100ML BAG EPI PRN (14:40)
[2024-10-21] MEDS ORDERED: BUPIVACAINE 0.25% PF 30 ML VIAL EPI STA (14:40)
[2024-10-21] MEDS ORDERED: PROMETHAZINE 6.25 MG/50.25 ML BAG IV PRN (14:40)
[2024-10-21] MEDS ORDERED: BUPIVACAINE 0.25% PF 30 ML VIAL EPI PRN (14:40)
[2024-10-21] MEDS ORDERED: NALOXONE HCL 0.4 MG/1 ML VIAL/CARP IV PRN (14:40)
[2024-10-21] MEDS ORDERED: LIDOCAINE 2%/EPINEPHRINE 1:200,000 20 ML PF EPI STA (14:40)
[2024-10-21] MEDS ORDERED: ROPIVACAINE 0.5% PF 5 MG/ML 20 ML VIAL EPI PRN (14:40)
[2024-10-21] MEDS ORDERED: fentaNYL citrate PF 100 MCG/2 ML VIAL EPI PRN (14:40)
[2024-10-21] MEDS ORDERED: ePHEDrine sulfate 50 MG/ML AMP IV PRN (14:40)
[2024-10-21] MEDS ORDERED: diphenhydrAMINE 50 MG/ML VIAL IV PRN (14:40)
[2024-10-21] MEDS ORDERED: fentaNYL citrate PF 100 MCG/2 ML VIAL EPI STA (14:40)
[2024-10-21] MEDS ORDERED: SODIUM CHLORIDE 0.9% PF INJ 10 ML VIAL EPI STA (14:40)
[2024-10-21] MEDS ORDERED: NALBUPHINE HCL INJ 10 MG/ML AMP IV PRN (14:40)
[2024-10-21] MEDS ORDERED: ONDANSETRON INJ 2 MG/ML 2 ML VIAL IV PRN (14:40)
[2024-10-21] MEDS ORDERED: LIDOCAINE 2% MPF LOCAL 5 ML VIAL EPI PRN (14:40)
--- NOTE | 2024-10-21 14:41 | Anesthesiology Consultation ---
Date of Service October 21, 2024 Assessment & Plan Chart Review Chart Review: Patient NOT seen in Pre Admission Testing and Acceptable Risk for Labor Epidural Consults Requested none ASA ASA2 Proposed Anesthesia Anesthesia Type: Labor Epidural Risk / Benefits Reviewed With: PT / POA / Parent / Guardian, Accepts Plan and Informed Consent Obtained History Height/Weight Height: 5 ft 8 in Weight: 96.162 kg Allergies Allergy/AdvReac Type Severity Reaction Status Date / Time No Known Drug Allergies Allergy Verified 10/20/24 14:48 Medications Home Medications Medication Instructions Recorded Confirmed Last Taken 21-iron fu-folic acid PO 03/05/24 10/20/24 10/21/24 06:00 [ Complete] acetone (urine) test (Ketone Urine #50 ea 04/10/24 10/20/24 Unknown Test strips) blood sugar diagnostic (OneTouch #150 ea 04/10/24 10/20/24 Unknown Verio test strips) lancets 33 gauge (OneTouch Delica #150 ea 07/03/24 10/20/24 Unknown Plus Lancet) Active Medications Generic Name Dose Route Start Last Admin Trade Name Freq PRN Reason Stop Dose Admin Lactated Ringer's 1,000 mls @ 125 mls/hr 10/21/24 08:32 10/21/24 14:32 Lr IV 10/22/24 08:31 999 mls/hr .Q8H PRN Administration L&D Protocol Protocol Oxytocin 30 units in 500 mls @ 12 mls/hr 10/21/24 08:32 10/21/24 13:00 Pitocin 30 Units/Nss IV 10/23/24 08:31 0.72 units/hr .Q24H PRN 12 mls/hr Labor Induction/Augmentation Titration Protocol 0.72 UNITS/HR Penicillin G Potassium 3 mu/ 106 mls @ 100 mls/hr 10/21/24 11:32 10/21/24 12:26 Dextrose IV 10/31/24 11:31 100 mls/hr Q4H PRN Administration GBS(+) Until Delivery Past Medical History Medical History Lump of right breast Fibroadenoma of breast Breast lump Heart murmur stenosis of pulmonary valve Varicella Exercise / Class Metabolic Activity II 4-5 Yardwork/Stairs/Walk up hill Past Family History Family History Father Hypertension Denies family history of Ovarian cancer Prostate cancer Breast cancer Colorectal cancer Past Surgical History Surgical History S/P fine needle aspiration Past Anesthesia History No Hx of Anesthesia Complications and No Family Hx of Anesthesia Complications History of PONV No Hx of PONV and No Hx of Motion Sickness Social History Smoking Status: Never smoker Do You Dip or Chew Tobacco: No Hx Alcohol Use: No Hx Substance Use: No Physical Exam Vital Signs Last Vital Signs Temp 36.6 C 10/21/24 12:00 Pulse 95 H 10/21/24 14:40 Resp 16 10/21/24 12:00 BP 117/64 10/21/24 14:40 Pulse Ox 98 10/21/24 14:39 ENMT Mouth: no dentition abnormality Thyromental Distance: > or= 3.5 Finger Breadths Mallampati Class: II Neck normal visual inspection Respiratory normal respiratory effort Auscultation: lungs clear to auscultation bilaterally Cardiovascular Rate/Rhythm: regular rate and regular rhythm Psychiatric Orientation: alert Testing Laboratory Results 10/21/24 08:59
[2024-10-21] MEDS: fentaNYL citrate PF 100 MCG/2 ML VIAL ONE (14:43)
[2024-10-21] MEDS: ePHEDrine sulfate 50 MG/ML AMP ONE (14:43)
[2024-10-21] MEDS ORDERED: bisacodyL 10 MG SUPP PR PRN (17:58)
[2024-10-21] MEDS ORDERED: HYDROCORTISONE ACETATE 25 MG SUPP PR PRN (17:58)
--- NOTE | 2024-10-21 18:01 | Delivery Summary ---
Vaginal Delivery Summary Date of Service October 21, 2024 Vaginal Delivery Summary Patient progressed to 10 cm dilated, 100% effaced and +2 station and pushed over intact perineum with an epidural anesthesia and delivered a viable with weight and Apgars pending. Head of the delivered without difficulty quickly followed by shoulders and body. was noted to be vigorous soon after delivery and a 1 minute delayed cord clamping was initiated. Cord was then double clamped and cut remained on maternal abdomen. Cord blood obtained and attention turned to deliver the placenta which delivered intact with three-vessel cord with gentle cord traction. Inspection of perineum vagina and cervix there is no to be no lacerations. Sponge and instrument counts correct with completion of the case. Both mother and stable in the immediate postdelivery timeframe. No complications noted and blood loss per [facility]BL [facility] Vaginal Delivery Charge Delivery Type Details: [facility]
--- NOTE | 2024-10-21 19:48 | Anesthesia Procedure Note ---
Date of Service October 21, 2024 Anesthesia Post Epidural Note Vital Signs Vital Signs: Temp Pulse Resp BP Pulse Ox 36.6 C 93 H 16 121/72 97 10/21/24 18:00 10/21/24 19:34 10/21/24 18:55 10/21/24 19:34 10/21/24 17:44 Notes Mental Status: alert / awake / arousable Nausea / Vomiting: adequately controlled Pain: adequately controlled Airway Patency, RR, SpO2: stable & adequate BP & HR: stable & adequate Hydration State: stable & adequate Neuraxial Anesthesia: was administered and sensory block is resolving Anesthetic Complications: no major complications apparent and Pt Satisfied with anesthetic care Epidural: Removed without complications and With tip intact
[2024-10-21] MEDS: BENZOCAINE 20% SPRY 85 APPLN/85 GM CAN EXT PRN (21:35)
[2024-10-21] MEDS: DOCUSATE SODIUM 100 MG CAP PO SCH (21:35)
[2024-10-22] MEDS: IBUPROFEN 600 MG TAB PO PRN (01:45)
[2024-10-22] MEDS: DIPHTHER/TETAN/PERTUS Vaccine (Tdap, Adol/Adult) 0.5mL IM ONE (04:49)
--- NOTE | 2024-10-22 07:24 | Obstetrical Progress Note ---
Date of Service October 22, 2024 Assessment & Plan (1) Encounter for care and examination after delivery: Day 1 status post vaginal delivery. Stable for discharge if preferred at 24 hours. Subjective Ambulation: ambulating normally Voiding: no voiding problems Passing Gas:: Yes Diet Tolerance:: regular diet Lochia:: Moderate Physical Exam Constitutional WD/WN, vitals as above Respiratory normal respiratory effort; no respiratory distress and no labored breathing Cardiovascular Extremities: no calf tenderness Gastrointestinal (Abdomen) Inspection/Auscultation: abdomen normal to inspection; abdomen not distended Percussion/Palpation: abdomen soft; abdomen nontender, no guarding and abdomen not rigid Genitourinary OB Exam Abdomen: + fundal height Fundus: + firm and + relation to umbilicus (Below); not tender or not boggy Results & Data Vital Signs (Past 12 Hours) Vital Signs Temp Pulse Pulse Resp BP BP 10/22/24 04:40 36.9 C 89 18 113/71 10/22/24 01:00 36.9 C 86 18 117/76 10/21/24 21:30 36.6 C 101 H 18 113/72 10/21/24 20:25 36.8 C 10/21/24 20:04 94 H 117/57 L 10/21/24 19:49 93 H 123/75 10/21/24 19:35 18 10/21/24 19:34 93 H 121/72
[2024-10-22] MEDS: PRENATAL VITAMIN 1 TAB PO SCH (08:00)
[2024-10-22] MEDS: FERROUS SULFATE 325 MG TAB PO SCH (08:02)
[2024-10-22] MEDS: ACETAMINOPHEN 325 MG TAB PO PRN (15:49)
[2024-10-22 17:19] VITALS: BP 116/79; PULSE 94; RESP 20; TEMP 99; O2SAT 96
[2024-10-22] MEDS: bisacodyL 5 MG TABEC PO SCH (19:40)
== END 2024-10-22 20:10 | disposition home or self-care (01) | DRG 807 ==
LOC: 4S1 07:57 → 4E2 20:47
DX: Z3A.41 41 weeks gestation of pregnancy; O99.824 Streptococcus B carrier state complicating childbirth; Z37.0 Single live birth; O48.0 Post-term pregnancy; O24.410 Gestational diabetes mellitus in pregnancy, diet controlled